=== PATIENT | female | born 1970 | race African-American/Black ===

== ENCOUNTER 2019-08-04 05:03 | Inpatient (IN) | payer MEDICAID, SELFPAY ==
[~2019-08-04] VITALS: Ht 177.8 cm; Wt 68.0 kg
[2019-08-04] MEDS ORDERED: ONDANSETRON HCL 4 MG/2 ML VIAL IV ONE (05:30)
[2019-08-04] MEDS ORDERED: LORazepam 2MG/ML-1ML VIAL IV ONE (05:30)
[2019-08-04] MEDS ORDERED: THIAMINE INJ 100 MG in SODIUM CHLORIDE 0.9% 1,000 ML IV ONE (05:30)
[2019-08-04] MEDS ORDERED: THIAMINE 100mg/ml INJ (200mg/2ml VIAL) ONE (05:55)
[2019-08-04 06:46] LABS: Basophils # (auto) 0.1 10 ^3/uL (0-0.2); Basophils % (auto) 0.5 % (0.0-2.0); Eosinophils # (auto) 0 10 ^3/uL (0-0.8); Hematocrit 36.4 % (36.0-46.0); Hemoglobin 12.5 g/dL (12.2-16.2); Lymphocytes # (auto) 0.3 10 ^3/uL (0.4-5.4); Lymphocytes % (auto) 2.2 % (10.0-50.0); Mean Corpuscular Hemoglobin 32.1 pg (28.0-32.0); Mean Corpuscular Hgb Conc. 34.3 g/dL (32.0-36.0); Mean Corpuscular Volume 93.6 fL (80.0-100.0); Monocytes # (auto) 0.6 10 ^3/uL (0-1.3); Monocytes % (auto) 4.9 % (0.0-12.0); Neutrophils # (auto) 10.7 10 ^3/uL (1.6-8.6); Neutrophils % (auto) 92.4 % (37.0-80.0); Platelet Count (auto) 97 10^3/uL (140-450); Red Blood Cells 3.89 10^6/uL (4.0-5.20); Red Cell Distribution Width 18.2 % (11.8-14.3); White Blood Cell 11.6 10^3/uL (4.4-10.8)
[2019-08-04 06:50] LABS: Urine Amorphous Crystal FEW /hpf (None Seen); Urine Bacteria MOD /hpf (None Seen); Urine Blood 2+ /uL (Negative); Urine Hyaline Cast FEW /lpf (0 - 2); Urine Mucus FEW (None Seen); Urine Specific Gravity 1.012 (1.001-1.035); Urine WBC 98 /hpf (0 - 5); Urine WBC Clumps PRESENT /hpf (None Seen)
[2019-08-04] MEDS ORDERED: SODIUM CHLORIDE 0.9% 1,000 ML IV ONE ×2 (06:50)
[2019-08-04] MEDS ORDERED: chlordiazePOXIDE HCL 5 MG CAP PO ONE (07:00)
[2019-08-04 07:02] LABS: INR 1.06 (0.9-1.15); Partial Thromboplastin Time 29.9 sec (23.64-32.05)
[2019-08-04 07:04] LABS: Salicylate < 1.7 mg/dL (2.8-20.0)
[2019-08-04 07:07] LABS: Albumin 3.1 g/dL (3.4-5.0); Amylase 77 U/L (25-115); Anion Gap 19 (5-15); Blood Alcohol < 3.0 mg/dL (0-5); Blood Urea Nitrogen 4 mg/dL (7-18); Carbon Dioxide 21 mmol/L (21-32); Chloride 94 mmol/L (98-107); Glucose 156 mg/dL (74-106); Lactic Acid w/Reflex 8.1 mmol/L (0.4-2.0); Lipase 123 U/L (73-393); Magnesium 1.1 mg/dL (1.6-2.6); Sodium 134 mmol/L (136-145)
[2019-08-04 07:09] LABS: Acetaminophen < 2.0 ug/mL (10-30)
[2019-08-04 07:12] LABS: Alanine Aminotransferase 20 U/L (13-56); Alkaline Phosphatase 84 U/L (45-117); Aspartate Aminotransferase 77 U/L (15-37); Bilirubin, Total 1.1 mg/dL (0.2-1.0); GFR African American 99 mL/min; GFR Non-African American 82 mL/min; Total Protein 7.7 g/dL (6.4-8.2)
[2019-08-04 07:14] LABS: Potassium 2.8 mmol/L (3.5-5.1)
[2019-08-04 07:15] LABS: Alcohol, Urine < 3.0 mg/dL (0-5); Amphetamine Screen, Urine NEGATIVE (NEGATIVE); Barbiturate Scree,Urine NEGATIVE (NEGATIVE); Benzodiazephine Screen, Urine NEGATIVE (NEGATIVE); Cannabinoid Screen, Urine NEGATIVE (NEGATIVE); Cocaine Screen, Urine NEGATIVE (NEGATIVE); Opiate Scree,Urine NEGATIVE (NEGATIVE); Phencyclidine Screen, Urine NEGATIVE (NEGATIVE)
[2019-08-04] MEDS ORDERED: POTASSIUM CHL 20MEQ/100ML 100 ML IV ONE (07:15)
[2019-08-04] MEDS ORDERED: POTASSIUM EFFERVESENT TAB 25 MEQ PO ONE (07:15)
[2019-08-04 10:14] LABS: Alcohol, Urine < 3.0 mg/dL (0-5); Barbiturate Scree,Urine NEGATIVE (NEGATIVE)
[2019-08-04 10:16] LABS: Amphetamine Screen, Urine NEGATIVE (NEGATIVE); Benzodiazephine Screen, Urine NEGATIVE (NEGATIVE); Cannabinoid Screen, Urine NEGATIVE (NEGATIVE); Cocaine Screen, Urine NEGATIVE (NEGATIVE); Opiate Scree,Urine NEGATIVE (NEGATIVE); Phencyclidine Screen, Urine NEGATIVE (NEGATIVE)
[2019-08-04] MEDS ORDERED: PIPERACILLIN-TAZOB 3.375GM 100 ML IV ONE (11:15)
[2019-08-04] MEDS ORDERED: ACETAMINOPHEN 325 MG TAB PO ONE (11:15)
[2019-08-04] MEDS ORDERED: cefTRIAXone 1GM/50ML D5W 50 ML IV ONE (11:30)
[2019-08-04] MEDS ORDERED: ZINC SULFATE 220mg CAP or TAB PO ONE (12:00)
[2019-08-04] MEDS ORDERED: ASCORBIC ACID 500 MG TAB PO ONE (12:00)
[2019-08-04] MEDS ORDERED: PROMETHAZINE HCL 25 MG/ML 1ML IV PRN (12:00)
[2019-08-04] MEDS ORDERED: MORPHINE SULF INJ 2 MG/ML SYRINGE 1ML IV PRN ×2 (12:00)
[2019-08-04] MEDS ORDERED: ALBUTEROL SULF 2.5 MG/0.5ML(0.5%) NEB SOLN NEB PRN (12:00)
[2019-08-04] MEDS ORDERED: chlordiazePOXIDE HCL 25 MG CAP PO PRN (12:00)
[2019-08-04] MEDS ORDERED: LACTULOSE 20Gm/30ML SOLN PO PRN (12:00)
[2019-08-04] MEDS ORDERED: NITROGLYCERIN 0.4 MG SL TAB SL PRN (12:00)
[2019-08-04] MEDS ORDERED: traMADol HCL 50 MG TAB PO PRN (12:00)
[2019-08-04] MEDS ORDERED: DEXTROSE (50%) 50ML SYRG IV PRN (12:00)
[2019-08-04] MEDS ORDERED: LORazepam 2MG/ML-1ML VIAL IV PRN (12:00)
[2019-08-04] MEDS: SOD CHL 0.9%/ KCL 40MEQ 1,000 ML IV SCH (12:45)
[2019-08-04] MEDS: chlordiazePOXIDE HCL 5 MG CAP PO SCH ×2 (12:46→18:02)
[2019-08-04 15:12] VITALS: BP 128/83
[2019-08-04] MEDS ORDERED: SOD CHL 0.9%/ KCL 40MEQ 1,000 ML IV ONE (16:00)
[2019-08-04] MEDS: MAGNESIUM SULFATE 1GM/100ML 100 ML IV SCH ×4 (16:38→20:20)
[2019-08-04] MEDS: ACCU-CHEK COMFORT CURVE STRIP VI SCH ×2 (17:21→22:07)
[2019-08-04] MEDS: ACETAMINOPHEN 500 MG TAB PO PRN (17:31)
[2019-08-04 18:00] VITALS: BP 112/70
[2019-08-04] MEDS ORDERED: VANCOMYCIN PER PHARMACY 0 MG IV SCH (18:30)
[2019-08-04] MEDS ORDERED: FUROSEMIDE 40 MG/4 ML VIAL IV ONE (18:30)
[2019-08-04] MEDS ORDERED: PIPERACILLIN-TAZO 4.5GM 100 ML IV ONE (18:30)
[2019-08-04] MEDS ORDERED: METOPROLOL TARTRATE 1MG/1ML-5ML VIAL IV PRN (18:30)
[2019-08-04 20:00] VITALS: BP 120/68
[2019-08-04] MEDS: VANCOMYCIN 1GM/250ML 250 ML IV SCH (20:23)
[2019-08-04 21:29] LABS: Calcium 7.9 mg/dL (8.5-10.1); Potassium 3.6 mmol/L (3.5-5.1)
[2019-08-04] MEDS: FAMOTIDINE 20 MG TAB PO SCH (22:07)
[2019-08-04 23:26] VITALS: BP 113/75
[2019-08-05] MEDS: PIPERACILLIN-TAZOB 2.25GM 50 ML IV SCH ×3 (00:34→13:41)
[2019-08-05] MEDS: chlordiazePOXIDE HCL 5 MG CAP PO SCH ×3 (00:34→13:42)
[2019-08-05] MEDS: SOD CHL 0.9%/ KCL 40MEQ 1,000 ML IV SCH ×3 (04:40→13:42)
[2019-08-05 04:48] VITALS: BP 113/77
[2019-08-05] MEDS: ACETAMINOPHEN 500 MG TAB PO PRN (04:52)
[2019-08-05] MEDS ORDERED: FUROSEMIDE 20 MG/2 ML VIAL IV SCH (06:00)
[2019-08-05 07:02] LABS: Basophils # (auto) 0.1 10 ^3/uL (0-0.2); Basophils % (auto) 1.2 % (0.0-2.0); Eosinophils # (auto) 0 10 ^3/uL (0-0.8); Eosinophils % (auto) 0.3 % (0.0-7.0); Hematocrit 34.2 % (36.0-46.0); Hemoglobin 11.5 g/dL (12.2-16.2); Lymphocytes # (auto) 0.9 10 ^3/uL (0.4-5.4); Lymphocytes % (auto) 11.9 % (10.0-50.0); Mean Corpuscular Hemoglobin 31.7 pg (28.0-32.0); Mean Corpuscular Hgb Conc. 33.7 g/dL (32.0-36.0); Monocytes # (auto) 0.2 10 ^3/uL (0-1.3); Monocytes % (auto) 3.2 % (0.0-12.0); Neutrophils % (auto) 83.4 % (37.0-80.0); Platelet Count (auto) 93 10^3/uL (140-450); Red Blood Cells 3.64 10^6/uL (4.0-5.20); Red Cell Distribution Width 17.4 % (11.8-14.3); White Blood Cell 7.3 10^3/uL (4.4-10.8)
[2019-08-05] MEDS: ACCU-CHEK COMFORT CURVE STRIP VI SCH ×2 (07:08→13:41)
[2019-08-05 07:21] LABS: Albumin 2.4 g/dL (3.4-5.0); Calcium 7.4 mg/dL (8.5-10.1); Potassium 3.6 mmol/L (3.5-5.1)
[2019-08-05 07:24] LABS: BUN/Creatinine Ratio 10.9; Bilirubin, Total 0.9 mg/dL (0.2-1.0); Total Protein 6.2 g/dL (6.4-8.2)
[2019-08-05 08:00] VITALS: BP 110/73
[2019-08-05] MEDS ORDERED: cefTRIAXone 1GM/50ML D5W 50 ML IV SCH (09:00)
[2019-08-05] MEDS: VANCOMYCIN 1GM/250ML 250 ML IV SCH (09:31)
[2019-08-05] MEDS: FAMOTIDINE 20 MG TAB PO SCH (09:31)
[2019-08-05] MEDS ORDERED: LORazepam 2MG/ML-1ML VIAL IV SCH (10:00)
[2019-08-05] MEDS ORDERED: AZITHROMYCIN 500MG/ 250ML 250 ML IV SCH (10:00)
[2019-08-05] MEDS ORDERED: THIAMINE 100mg/ml INJ (200mg/2ml VIAL) IV SCH (10:00)
[2019-08-05] MEDS ORDERED: ENOXAPARIN SOD 40 MG/0.4 ML SYRINGE SC SCH (10:00)
== END 2019-08-05 15:20 | disposition left against medical advice (07) | DRG 463 ==
LOC: ER 05:03 → EDBD 05:03 → TELE-EAST 05:04
PROVIDERS: ADMIT Internal Medicine; ATTEND Hospitalist
DX: N39.0 Urinary tract infection, site not specified (principal); F10.231 Alcohol dependence with withdrawal delirium; E87.2 Acidosis; E44.1 Mild protein-calorie malnutrition; E87.1 Hypo-osmolality and hyponatremia; K70.9 Alcoholic liver disease, unspecified; K76.0 Fatty (change of) liver, not elsewhere classified; E86.0 Dehydration; R09.02 Hypoxemia; G89.29 Other chronic pain; E87.6 Hypokalemia; Y90.9 Presence of alcohol in blood, level not specified; F17.210 Nicotine dependence, cigarettes, uncomplicated; F41.9 Anxiety disorder, unspecified; G40.909 Epilepsy, unspecified, not intractable, without status epilepticus; Z68.21 Body mass index [BMI] 21.0-21.9, adult; Z79.899 Other long term (current) drug therapy; Z53.29 Procedure and treatment not carried out because of patient's decision for other reasons; Z03.818 Encounter for observation for suspected exposure to other biological agents ruled out
CPT/HCPCS: 36415; 70450; 71045; 74176; 80048; 80053; 80307; 80320; 80329; 81001; 82150; 82550; 82962; 83036; 83605; 83690; 83735; 84484; 84702; 85025; 85610; 85730; 87040; 87070; 87077; 87086; 87088; 87186; 87205; 87804; 87880; 93005; 96361; 96365; 96375; 99291; G0378; J0696; J2405; J2543; J3480

== ENCOUNTER 2020-08-10 01:07 | Emergency (ER) | payer MEDICAID ==
[~2020-08-10] VITALS: Ht 182.9 cm; Wt 61.2 kg
[2020-08-10 01:14] VITALS: BP 106/69
[2020-08-10] MEDS ORDERED: ACCU-CHEK COMFORT CURVE STRIP VI ONE ×2 (01:30→01:45)
[2020-08-10] MEDS ORDERED: DEXTROSE (50%) 50ML SYRG IV ONE (01:30)
== END 2020-08-10 01:46 | disposition left against medical advice (07) ==
LOC: EDBD 01:07 → ER 01:07
DX: E16.2 Hypoglycemia, unspecified (principal); Z53.21 Procedure and treatment not carried out due to patient leaving prior to being seen by health care provider

== ENCOUNTER 2020-10-24 22:06 | Emergency (ER) | payer MEDICAID ==
[~2020-10-24] VITALS: Ht 154.9 cm; Wt 59.0 kg
[2020-10-24 23:27] LABS: Basophils # (auto) 0.1 10 ^3/uL (0-0.2); Basophils % (auto) 3.4 % (0.0-2.0); Eosinophils # (auto) 0 10 ^3/uL (0-0.8); Eosinophils % (auto) 1.1 % (0.0-7.0); Hematocrit 32.1 % (36.0-46.0); Hemoglobin 10.4 g/dL (12.2-16.2); Lymphocytes # (auto) 1.4 10 ^3/uL (0.4-5.4); Lymphocytes % (auto) 36.5 % (10.0-50.0); Mean Corpuscular Hemoglobin 28.7 pg (28.0-32.0); Mean Corpuscular Hgb Conc. 32.3 g/dL (32.0-36.0); Mean Corpuscular Volume 88.9 fL (80.0-100.0); Monocytes # (auto) 0.2 10 ^3/uL (0-1.3); Monocytes % (auto) 5.4 % (0.0-12.0); Neutrophils # (auto) 2.1 10 ^3/uL (1.6-8.6); Neutrophils % (auto) 53.6 % (37.0-80.0); Nucleated Red Blood Cells % 0.1 %; Red Blood Cells 3.62 10^6/uL (4.0-5.20)
[2020-10-24 23:30] LABS: Red Cell Distribution Width 24.6 % (11.8-14.3)
[2020-10-24 23:36] LABS: Albumin 3.2 g/dL (3.4-5.0); Anion Gap 17 (5-15); Blood Urea Nitrogen 9 mg/dL (7-18); Calcium 7.5 mg/dL (8.5-10.1); Carbon Dioxide 17 mmol/L (21-32); Chloride 108 mmol/L (98-107); Glucose 122 mg/dL (74-106); Magnesium 1.3 mg/dL (1.6-2.6); Potassium 3.6 mmol/L (3.5-5.1); Sodium 142 mmol/L (136-145)
[2020-10-24 23:39] LABS: Alanine Aminotransferase 23 U/L (13-56); Aspartate Aminotransferase 67 U/L (15-37); BUN/Creatinine Ratio 16.7; GFR African American 156 mL/min; GFR Non-African American 129 mL/min
[2020-10-24 23:44] LABS: Alkaline Phosphatase 78 U/L (45-117); Bilirubin, Total 0.4 mg/dL (0.2-1.0); Total Protein 6.7 g/dL (6.4-8.2)
[2020-10-25] MEDS ORDERED: HYDROcodone-ACET 5/325MG TAB PO ONE ×2 (00:15→06:30)
[2020-10-25] MEDS ORDERED: ONDANSETRON HCL 4 MG/2 ML VIAL IV ONE (07:45)
[2020-10-25 07:59] VITALS: BP 108/61
== END 2020-10-25 08:59 | disposition home or self-care (01) ==
LOC: EDBD 22:06 → ER 22:08
DX: F10.239 Alcohol dependence with withdrawal, unspecified (principal); R07.89 Other chest pain; F17.210 Nicotine dependence, cigarettes, uncomplicated; K59.00 Constipation, unspecified; Y90.9 Presence of alcohol in blood, level not specified
CPT/HCPCS: 36415; 71045; 80053; 83735; 83880; 84484; 85025; 85049; 85379; 93005; 96374; 99285; J2405